=== PATIENT | female | born 1990 | race Caucasian/White ===

== ENCOUNTER 2018-10-06 03:15 | Inpatient (IN) | payer OTHER ==
[2018-10-06] MEDS ORDERED: ACETAMINOPHEN 325 MG TABLET (FP) PO ONE (05:35)
[2018-10-06] MEDS ORDERED: ACETAMINOPHEN 325 MG TABLET (FP) ONE (05:45)
[2018-10-06] MEDS ORDERED: PROMETHAZINE HCL 25 MG/1 ML VIAL IVPB ONE ×2 (11:15→15:25)
[2018-10-06] MEDS ORDERED: BUTORPHANOL TARTRATE 2 MG/ML VIAL IVPB ONE ×2 (11:15→15:25)
[2018-10-06] MEDS ORDERED: BUTORPHANOL TARTRATE 1 MG/ML VIAL ONE ×4 (11:17→15:43)
[2018-10-06] MEDS ORDERED: PROMETHAZINE HCL 25 MG/1 ML VIAL ONE ×2 (11:17→15:43)
[2018-10-06] MEDS: DEXTROSE 5%-LACTATED RINGERS 1,000 ML IV SCH ×2 (11:35→18:46)
[2018-10-06] MEDS ORDERED: OXYTOCIN 30 UNITS in 0.9% NS 30 UNIT/500 ML INFUS.BAG IVPB ONE (15:43)
[2018-10-06] MEDS: OXYTOCIN 30 UNITS in 0.9% NS 30 UNIT/500 ML INFUS.BAG IVPB SCH (15:55)
[2018-10-06 16:30] LABS: BASO % 0.5 % (0-2.0); HEMATOCRIT 33.5 % (32.4-45.2); HEMOGLOBIN 11.1 GM/dL (10.7-15.3); LYMPH % 10.7 % (8-40); MCH 26.7 pg (25.7-33.7); MEAN CELL VOLUME 80.7 fl (80-96); MEAN PLT VOLUME 9.2 fl (7.5-11.1); MONO % 4.1 % (3.8-10.2); NEUT % 84.7 % (42.8-82.8); PLATELET COUNT 264 K/MM3 (134-434); RBC 4.16 M/mm3 (3.60-5.2); RDW 15.7 % (11.6-15.6); WHITE BLOOD COUNT 11.5 K/mm3 (4.0-10.0)
[2018-10-06 16:38] LABS: INR 0.96 (0.83-1.09); PROTHROMBIN TIME (PATIENT) 11.3 SEC (9.7-13.0)
[2018-10-06 16:41] LABS: ACTIVATED PTT 31.2 SECONDS (25.2-36.5)
[2018-10-06 16:42] LABS: BLOOD UREA NITROGEN 6.3 mg/dL (7-18); CALCIUM 9.2 mg/dL (8.5-10.1); CREATININE 0.4 mg/dL (0.55-1.3)
[2018-10-06 16:52] VITALS: BMI 33.0
[2018-10-06] MEDS ORDERED: LIDOCAINE HCL 1% PRESERVATIVE FREE - 30ML VIAL ONE (19:40)
[2018-10-06] MEDS ORDERED: OXYTOCIN 20 UNITS in 0.9% NS 20 UNIT/1,000 ML INFUS.BAG IV ONE (19:41)
--- NOTE | 2018-10-06 20:40 | HP ---
Past Medical History - Primary Care Physician PCP:: Berna Roth - Admission Chief Complaint: 27yo P0 @ 40.4wks with labor pains, no VB, no LOF, pos FM History of Present Illness: 1. Late transfer at 29wks 2. Asthma - mild 3. Measles not immune History Source: Patient, Medical Record Limitations to Obtaining History: No Limitations - Past Medical History Pulmonary: Yes: Asthma ...: 2 ...Para: 0 ...Term: 0 ...: 0 ...Spon : 0 ...Induced : 1 ...Multiple Gestation: 0 ...LMP: 12/23/17 ... Weeks Gestation by Dates: 41.0 ...EDC by Dates: 09/29/18 ...EDC by Sono: 10/02/18 - Past Surgical History Past Surgical History: Yes: None Hx Myomectomy: No Hx Transabdominal Cerclage: No - Smoking History Smoking history: Never smoked Have you smoked in the past 12 months: No - Alcohol/Substance Use Hx Alcohol Use: No History of Substance Use: reports: None - Social History History of Recent Travel: No Home Medications - Allergies Allergies/Adverse Reactions: Allergies Allergy/AdvReac Type Severity Reaction Status Date / Time No Known Allergies Allergy Verified 10/06/18 06:07 - Home Medications Home Medications: Ambulatory Orders Iron 100 Plus Tablet 1 tab PO DAILY 10/06/18 19 Tablet 1 tab PO DAILY 10/06/18 Review of Systems - Review of Systems Constitutional: reports: No Symptoms Eyes: reports: No Symptoms HENT: reports: No Symptoms Neck: reports: No Symptoms Cardiovascular: reports: No Symptoms Respiratory: reports: No Symptoms Gastrointestinal: reports: No Symptoms Genitourinary: reports: No Symptoms Breasts: reports: No Symptoms Reported Musculoskeletal: reports: No Symptoms Integumentary: reports: No Symptoms Neurological: reports: No Symptoms Endocrine: reports: No Symptoms Hematology/Lymphatic: reports: No Symptoms Psychiatric: reports: No Symptoms Physical Exam - Maternity Vital Signs: Vital Signs Temperature 99.0 F 10/06/18 19:00 Pulse Rate 73 10/06/18 19:00 Respiratory Rate 18 10/06/18 19:00 Blood Pressure 137/78 10/06/18 19:00 O2 Sat by Pulse Oximetry (%) Constitutional: Yes: Well Nourished, No Distress, Calm Eyes: Yes: WNL, Conjunctiva Clear, EOM Intact HENT: Yes: WNL, Atraumatic, Normocephalic Neck: Yes: WNL, Supple, Trachea Midline Cardiovascular: Yes: WNL, Regular Rate and Rhythm Lungs: Clear to auscultation Breast(s): Yes: WNL - Abdominal Exam/OB Fundal Height: 40 (EFW 7lb) Number of Fetuses: Single Presentation: Vertex Contractions: Yes Regularity: Regular Intensity: Mild/Mod Monitor Mode: External Heart Rate (range): 130 Heart Rate Location: Midline Category: I Accelerations: Uniform Decelerations: None - Vaginal Exam/OB Vaginal Bleediing: No Speculum Exam: No (Exam @ 11am by the nurse) Dilatation (cm): 1 Effacement (%): 80 Amniotic Membrane Status: Intact Station: -3 - Physical Exam Musculoskeletal: Yes: WNL Extremities: Yes: WNL Edema: No ...Motor Strength: WNL Psychiatric: Yes: WNL, Alert, Oriented - Labs Lab Results: CBC, BMP 10/06/18 16:00 10/06/18 15:28 Assessment/Plan 27yo P0 @ 40.4 wks in early labor desires pain medication for theraputic rest Admit to L&D IVF, labs Theraputic rest with Stadol/Phenergan
[2018-10-06] MEDS ORDERED: PROMETHAZINE HCL 25 MG/1 ML VIAL IVPUSH ONE (20:41)
[2018-10-06] MEDS ORDERED: BENZOCAINE 28 GM HEMORRHOIDAL OINTMENT TP PRN (20:41)
[2018-10-06] MEDS ORDERED: BENZOCAINE 20% 57 GM BOTTLE TP PRN (20:41)
[2018-10-06] MEDS ORDERED: WITCH HAZEL 50% (TUCKS) 40 PAD/JAR PAD TP PRN (20:41)
[2018-10-06] MEDS ORDERED: METHYLERGONOVINE MALEATE 0.2 MG/1 ML AMP IM PRN (20:41)
[2018-10-06] MEDS ORDERED: BUTORPHANOL TARTRATE 1 MG/ML VIAL IVPB ONE (20:41)
[2018-10-06] MEDS ORDERED: BISACODYL 10 MG SUPP.RECT RC PRN (20:41)
--- NOTE | 2018-10-06 20:41 | PN ---
Delivery - Delivery Vaginal Delivery: No Problems Episiotomy/Laceration: None, 1st degree EBL (cc): 500 Delivery, Single - Stages of Labor Date 1st Stage Initiatied: 10/06/18 Time 1st Stage Initiated: 15:15 Date 2nd Stage Initiated: 10/06/18 Time 2nd Stage Initiated: 19:35 Time of Delivery: 19:56 Time Placenta Delivered: 20:00 - Condition of Research Administrator/Mattress Weaver Present: No Gender: Female Weight: 6 lb 15 oz Position: Left, OA - 1 Minute Total Score: 9 5 Minutes Total Score: 9 - Feeding Plan Initial Plan: Exclusive throughout hospitalization Remarks - Remarks Remarks: Cord around the neck, reduced without difficulty head and shoulders delivered atraumatically BL periureteral tears and 1degree pereneal tears encountered, patient's tissue was noted to be very friable and tearing very easily Exessive bleeding from all the tears and uterus noted. Methergine 0.2mg IM given in addition to Pitocin
[2018-10-06] MEDS ORDERED: D5W-LR W/ 20 UNITS OXYTOCIN 20 UNIT/1,000 ML INFUS.BAG IV SCH (20:45)
[2018-10-06] MEDS ORDERED: IBUPROFEN 600 MG TABLET (FP) PO ONE (21:17)
[2018-10-06] MEDS: IBUPROFEN 600 MG TABLET (FP) PO PRN (21:20)
[2018-10-06] MEDS: FERROUS SO4 325 MG TABLET (FP) PO SCH (22:57)
[2018-10-07 07:41] LABS: BASO % 0.2 % (0-2.0); EOS % 0.1 % (0-4.5); HEMOGLOBIN 8.5 GM/dL (10.7-15.3); LYMPH % 15.3 % (8-40); MCH 26.6 pg (25.7-33.7); MCHC 32.8 g/dl (32.0-36.0); MEAN CELL VOLUME 81.2 fl (80-96); MEAN PLT VOLUME 9.1 fl (7.5-11.1); MONO % 7.9 % (3.8-10.2); NEUT % 76.5 % (42.8-82.8); PLATELET COUNT 201 K/MM3 (134-434); RBC 3.21 M/mm3 (3.60-5.2); RDW 15.7 % (11.6-15.6)
[2018-10-07] MEDS: PRENATAL VITAMINS W/ FOLIC ACID TABLET (FP) PO SCH (09:27)
[2018-10-07] MEDS: FERROUS SO4 325 MG TABLET (FP) PO SCH ×2 (09:27→21:57)
--- NOTE | 2018-10-07 10:20 | PN ---
Post Progress Note - Subjective Subjective: Patient without acute complaints. Reports tolerating oral intake without nausea or vomiting. Ambulating without dizziness. Denies fevers or chills. Pain well controlled with oral pain medication. without difficulty. Passing flatus. Post Day: 1 Type of Delivery: Vital Signs: Vital Signs Temperature 98.8 F 10/07/18 06:00 Pulse Rate 68 10/07/18 06:00 Respiratory Rate 20 10/07/18 06:00 Blood Pressure 104/57 L 10/07/18 06:00 O2 Sat by Pulse Oximetry (%) - Labs Labs: CBC WBC 13.0 K/mm3 (4.0-10.0) H 10/07/18 06:55 RBC 3.21 M/mm3 (3.60-5.2) L 10/07/18 06:55 Hgb 8.5 GM/dL (10.7-15.3) L 10/07/18 06:55 Hct 26.0 % (32.4-45.2) L D 10/07/18 06:55 MCV 81.2 fl (80-96) 10/07/18 06:55 MCH 26.6 pg (25.7-33.7) 10/07/18 06:55 MCHC 32.8 g/dl (32.0-36.0) 10/07/18 06:55 RDW 15.7 % (11.6-15.6) H 10/07/18 06:55 Plt Count 201 K/MM3 (134-434) D 10/07/18 06:55 MPV 9.1 fl (7.5-11.1) 10/07/18 06:55 Absolute Neuts (auto) 10.0 K/mm3 (1.5-8.0) H 10/07/18 06:55 Neutrophils % 76.5 % (42.8-82.8) 10/07/18 06:55 Lymphocytes % 15.3 % (8-40) D 10/07/18 06:55 Monocytes % 7.9 % (3.8-10.2) D 10/07/18 06:55 Eosinophils % 0.1 % (0-4.5) D 10/07/18 06:55 Basophils % 0.2 % (0-2.0) 10/07/18 06:55 Nucleated RBC % 0 % (0-0) 10/07/18 06:55
[2018-10-07] MEDS: IBUPROFEN 600 MG TABLET (FP) PO PRN (21:57)
[2018-10-07] MEDS: ACETAMINOPHEN 325 MG TABLET (FP) PO PRN (21:58)
[2018-10-07] MEDS ORDERED: SENNOSIDES/DOCUSATE COMBO (SENNA PLUS) TABLET (UD) PO PRN (22:00)
[2018-10-08] MEDS: DEXTROSE 5%-LACTATED RINGERS 1,000 ML IV SCH ×3 (01:22→01:23)
[2018-10-08] MEDS: OXYTOCIN 30 UNITS in 0.9% NS 30 UNIT/500 ML INFUS.BAG IVPB SCH (01:22)
[2018-10-08] MEDS: IBUPROFEN 600 MG TABLET (FP) PO PRN ×2 (02:20→10:17)
[2018-10-08] MEDS: ACETAMINOPHEN 325 MG TABLET (FP) PO PRN ×2 (02:21→10:16)
--- NOTE | 2018-10-08 09:12 | DS ---
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 Vital Signs: Vital Signs Temperature 98.7 F 10/07/18 22:00 Pulse Rate 90 10/07/18 22:00 Respiratory Rate 18 10/07/18 22:00 Blood Pressure 104/70 10/07/18 22:00 O2 Sat by Pulse Oximetry (%) Constitutional: Yes: Well Nourished, No Distress, Calm Eyes: Yes: WNL, Conjunctiva Clear, EOM Intact HENT: Yes: WNL, Atraumatic, Normocephalic Neck: Yes: WNL, Supple, Trachea Midline Cardiovascular: Yes: WNL, Regular Rate and Rhythm Respiratory: Yes: WNL, Regular, CTA Bilaterally Gastrointestinal: Yes: WNL, Normal Bowel Sounds, Soft ...Rectal Exam: Yes: Deferred Renal/: Yes: WNL Pelvis: Yes: WNL External Genitalia: Yes: Normal Internal Exam Deferred: Yes ....Post : Yes: Uterus firm, Uterus non-tender, Slight lochia rubra Breast(s): Yes: WNL Musculoskeletal: Yes: WNL Extremities: Yes: WNL Edema: Yes Edema: LLE: Trace, RLE: Trace Integumentary: Yes: WNL Neurological: Yes: WNL, Alert, Oriented ...Motor Strength: WNL Psychiatric: Yes: WNL, Alert, Oriented Labs: CBC, BMP 10/07/18 06:55 10/06/18 15:28 Delivery - Delivery Vaginal Delivery: No Problems, Spontaneous Type of Anesthesia: Local Episiotomy/Laceration: None, 1st degree EBL (cc): 500 Delivery, Single - Stages of Labor Date 1st Stage Initiatied: 10/06/18 Time 1st Stage Initiated: 15:15 Date 2nd Stage Initiated: 10/06/18 Time 2nd Stage Initiated: 19:35 Date of Delivery: 10/06/18 Time of Delivery: 19:56 Time Placenta Delivered: 20:00 Placenta: Yes: Spontaneous - Condition of Infant Player Development Executive/Departure Clerk Present: No Infant Gender: Female Weight: 3.147 kg Position: Left, OA Total Hours ROM (Hrs/Mins): 4/41 - 1 Minute Total Score: 9 5 Minutes Total Score: 9 - Feeding Plan Initial Plan: Exclusive throughout hospitalization Benefits of Exclusively reinforced: Yes Discharge Summary Reason For Visit: LABOR ADMISSION Spont labor, post term Procedures: Principal: SARWAT Hospital Course: Normal labor, delivery, and recovery Condition: Good - Instructions Diet, Activity, Other Instructions: Physical activity Resume your normal everyday activity as tolerated no heavy lifting or exercise until seen by your surgeon. You may walk unlimited tony of and climb stairs. You may resume driving the car when you feel safe and comfortable behind the wheel. No sexual activity as instructed. Wound care If you have a bandage, leave it on, and keep dry for 48-72 hours. After that time discard the outer bandage. If they are tapes on the skin under the out of bandage leave them in place. They will peel off in the next 7 to 10 days. Do Not Peel them off. You may shower the day after surgery. If there are tapes present on the skin, you may shower over them. Diet There are no dietary restrictions. Eat healthy, high-fiber foods. Drink 6 to 8 glasses of liquid each day. This will assist in keeping your bowels are regular. Pain management You may take Tylenol or acetaminophen or Ibuprofen (for example, Motrin, Advil etc.) from my pain prescription medication is ordered should be taken as prescribed for moderate to severe pain. Call MD for any of the following: Severe pain not relieved by medication Fever of 101 or higher Excessive bleeding or drainage on dressing Inability to urinate Referrals: Any Dyson MD [Staff Physician] - Disposition: HOME - Home Medications Comprehensive Discharge Medication List: Ambulatory Orders Iron 100 Plus Tablet 1 tab PO DAILY 10/06/18 19 Tablet 1 tab PO DAILY 10/06/18
[2018-10-08] MEDS: FERROUS SO4 325 MG TABLET (FP) PO SCH (10:15)
[2018-10-08] MEDS: PRENATAL VITAMINS W/ FOLIC ACID TABLET (FP) PO SCH (10:15)
[2018-10-08 11:40] VITALS: BP 116/62; PULSE 88; TEMP 98.4
--- NOTE | 2018-10-15 18:08 | PATH ---
Surgical Pathology Report Patient Name: ROXANE RUELAS Med. Rec. 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 Specimen(s) Received PLACENTA Clinical History , , EGA by Sono 40.4 weeks Final Diagnosis PLACENTA, : MATURE THIRD TRIMESTER PLACENTA (WEIGHT: 649 G) SHOWING ACUTE CHORIOAMNIONITIS WITH VASCULAR CONGESTION AND CHORANGIOSIS OF PLACENTAL DISC. TRIVESSEL UMBILICAL CORD. Electronically Signed Kaleigh Carranza M.D. Gross Description The specimen is received fresh labeled placenta and is a 649 gram, 19 x18 x 3cm. placenta with attached membranes and umbilical cord. The attached membranes appear dull and insert marginally. The umbilical cord measures 18 cm. in length and averages 1.1 cm. in diameter. The cord inserts eccentrically, 3 centimeter to the nearest margin. No true knots or strictures are identified. Cut surface of the umbilical cord reveals 3 vessels. Sectioning reveals red-brown, spongy parenchyma with few hemorrhagic foci. Activities Assistant sections are submitted in three cassettes as follows: 1- membrane rolls and umbilical cord; 2-3- full thickness sections of placenta KWS/10/09/2018 sulki/10/09/2018
== END 2018-10-08 13:05 | disposition home or self-care (01) | DRG 560 ==
LOC: JDEL 03:15 → JLDR 15:25 → J3W 22:10
PROVIDERS: ADMIT Obstetrics & Gynecology; ATTEND Obstetrics & Gynecology
PROC: 0HQ9XZZ Repair Perineum Skin, External Approach (ICD-10-PCS; principal; 2018-10-06)
PROC: 10E0XZZ Delivery of Products of Conception, External Approach (ICD-10-PCS; 2018-10-06)
DX: O48.0 Post-term pregnancy (principal); O70.0 First degree perineal laceration during delivery; O69.81X0 Labor and delivery complicated by cord around neck, without compression, not applicable or unspecified; Z3A.40 40 weeks gestation of pregnancy; Z37.0 Single live birth
CPT/HCPCS: 36415; 36600; 59409; 71046-TC-FY; 80048; 82803; 85025; 85610; 85730; 86593; 86850; 86900; 86901; 88307-TC